=== PATIENT | male | born 1970 | race Caucasian/White ===

== ENCOUNTER 2022-07-30 12:48 | Inpatient (IN) | payer OTHER ==
[2022-07-30 14:34] VITALS: BMI 22.4
[2022-07-30] MEDS ORDERED: MAG HYDROX/AL HYDROX/SIMETH 30 ML UNIT-DOSE CUP PO PRN (16:34)
[2022-07-30] MEDS ORDERED: BISMUTH SUBSALICYLATE 524 MG/30 ML PO PRN (16:34)
[2022-07-30] MEDS ORDERED: DICYCLOMINE HCL 10 MG CAPSULE PO PRN (16:34)
[2022-07-30] MEDS ORDERED: ACETAMINOPHEN 325 MG TABLET (FP) PO PRN (16:34)
[2022-07-30] MEDS ORDERED: LOPERAMIDE HCL 2 MG CAPSULE PO PRN (16:34)
[2022-07-30] MEDS ORDERED: IBUPROFEN 400 MG TABLET (FP) PO PRN (16:34)
[2022-07-30] MEDS ORDERED: MAGNESIUM CITRATE 300 ML BOTTLE PO PRN (16:34)
[2022-07-30] MEDS ORDERED: BENZOCAINE/MENTHOL (CHLORASEPTIC ) LOZENGE MM PRN (16:34)
[2022-07-30] MEDS ORDERED: ONDANSETRON *ODT* 4 MG TABLET SL PRN (16:34)
[2022-07-30] MEDS ORDERED: hydrOXYzine PAMOATE 25 MG CAPSULE (FP) PO PRN (16:34)
[2022-07-30] MEDS ORDERED: NALOXONE HCL (KLOXXADO) 8 MG SPRAY NS PRN (16:34)
[2022-07-30] MEDS ORDERED: MAGNESIUM HYDROX 2400MG/30ML ORAL SUSPENSION 30 ML CUP PO PRN (16:34)
[2022-07-30] MEDS: PRENATAL VITAMINS W/ FOLIC ACID TABLET (FP) PO SCH (20:19)
[2022-07-30] MEDS: NICOTINE 7 MG/24 HOURS TOPICAL PATCH TD SCH (20:19)
[2022-07-30] MEDS: diazePAM 5 MG TABLET PO SCH ×2 (20:20→22:55)
[2022-07-30] MEDS: METHOCARBAMOL 500 MG TABLET PO PRN (22:54)
[2022-07-30] MEDS: MELATONIN 5 MG TABLETS PO SCH (22:55)
[2022-07-30] MEDS: THIAMINE HCL 100 MG TABLET (FP) PO SCH (22:55)
[2022-07-31] MEDS: diazePAM 5 MG TABLET PO SCH ×4 (06:24→22:30)
[2022-07-31] MEDS ORDERED: methaDONE HCL 10 MG TABLET PO ONE (09:16)
[2022-07-31] MEDS ORDERED: methaDONE 40 MG, methaDONE 20 MG PO ONE (09:22)
[2022-07-31] MEDS: METHOCARBAMOL 500 MG TABLET PO PRN (10:33)
[2022-07-31] MEDS: PRENATAL VITAMINS W/ FOLIC ACID TABLET (FP) PO SCH (10:33)
[2022-07-31] MEDS: IBUPROFEN 600 MG TABLET (FP) PO PRN (10:35)
[2022-07-31] MEDS: NICOTINE 7 MG/24 HOURS TOPICAL PATCH TD SCH (10:36)
[2022-07-31] MEDS: NICOTINE 10 MG CARTRIDGE (INHALER) IH PRN (10:46)
[2022-07-31 14:17] LABS: HEMATOCRIT 38.6 % (35.4-49); MCHC 33.6 g/dl (32.0-35.9); MEAN CELL VOLUME 95.2 fl (80-96); PLATELET COUNT 47 10^3/uL (134-434); RBC 4.05 M/mm3 (4.00-5.60); RDW 13.3 % (11.9-15.9)
[2022-07-31 15:30] LABS: ALBUMIN 2.4 g/dl (3.4-5.0); BLOOD UREA NITROGEN 12.9 mg/dL (7-18); CALCIUM 8.1 mg/dL (8.5-10.1)
[2022-07-31 15:33] LABS: CREATININE 0.5 mg/dL (0.55-1.3)
[2022-07-31 15:34] LABS: BILIRUBIN,TOTAL 0.9 mg/dL (0.2-1); TOT PROT 6.2 g/dl (6.4-8.2)
[2022-07-31] MEDS: MELATONIN 5 MG TABLETS PO SCH (22:30)
[2022-07-31] MEDS: THIAMINE HCL 100 MG TABLET (FP) PO SCH (22:30)
[2022-08-01] MEDS ORDERED: methaDONE HCL 10 MG TABLET PO SCH (06:00)
[2022-08-01] MEDS: diazePAM 5 MG TABLET PO SCH ×3 (06:23→21:49)
[2022-08-01] MEDS: methaDONE 40 MG, methaDONE 20 MG PO SCH (06:24)
[2022-08-01] MEDS: NICOTINE 10 MG CARTRIDGE (INHALER) IH PRN (10:56)
[2022-08-01] MEDS: PRENATAL VITAMINS W/ FOLIC ACID TABLET (FP) PO SCH (10:56)
[2022-08-01] MEDS: METHOCARBAMOL 500 MG TABLET PO PRN (10:56)
[2022-08-01] MEDS: IBUPROFEN 600 MG TABLET (FP) PO PRN (10:56)
[2022-08-01] MEDS: NICOTINE 7 MG/24 HOURS TOPICAL PATCH TD SCH (10:57)
[2022-08-01] MEDS: MELATONIN 5 MG TABLETS PO SCH (21:49)
[2022-08-01] MEDS: THIAMINE HCL 100 MG TABLET (FP) PO SCH (21:49)
[2022-08-02] MEDS: methaDONE 40 MG, methaDONE 20 MG PO SCH (06:27)
[2022-08-02] MEDS: diazePAM 5 MG TABLET PO SCH ×2 (06:28→18:27)
[2022-08-02] MEDS: NICOTINE 7 MG/24 HOURS TOPICAL PATCH TD SCH (11:24)
[2022-08-02] MEDS: METHOCARBAMOL 500 MG TABLET PO PRN (11:24)
[2022-08-02] MEDS: PRENATAL VITAMINS W/ FOLIC ACID TABLET (FP) PO SCH (11:24)
[2022-08-02] MEDS: ACETAMINOPHEN 325 MG TABLET (FP) PO PRN (11:25)
[2022-08-02] MEDS: NICOTINE 10 MG CARTRIDGE (INHALER) IH PRN (11:38)
[2022-08-03] MEDS: THIAMINE HCL 100 MG TABLET (FP) PO SCH (00:04)
[2022-08-03] MEDS: MELATONIN 5 MG TABLETS PO SCH (00:04)
[2022-08-03] MEDS: METHOCARBAMOL 500 MG TABLET PO PRN (00:05)
[2022-08-03] MEDS ORDERED: diazePAM 5 MG TABLET PO ONE (06:00)
[2022-08-03] MEDS: methaDONE 40 MG, methaDONE 20 MG PO SCH (06:17)
[2022-08-03] MEDS: PRENATAL VITAMINS W/ FOLIC ACID TABLET (FP) PO SCH (10:57)
[2022-08-03] MEDS: ACETAMINOPHEN 325 MG TABLET (FP) PO PRN (10:57)
[2022-08-03] MEDS: NICOTINE 7 MG/24 HOURS TOPICAL PATCH TD SCH (10:57)
[2022-08-03 12:50] VITALS: BP 98/54; PULSE 54; RESP 17; TEMP 97.6
== END 2022-08-03 13:38 | disposition home or self-care (01) | DRG 773 ==
LOC: YASAS 12:48 → Y6N 17:32
PROVIDERS: ADMIT Allergy & Immunology; ATTEND Surgery
PROC: HZ2ZZZZ Detoxification Services for Substance Abuse Treatment (ICD-10-PCS; principal; 2022-07-30)
DX: F10.20 Alcohol dependence, uncomplicated (principal); F13.230 Sedative, hypnotic or anxiolytic dependence with withdrawal, uncomplicated; F11.20 Opioid dependence, uncomplicated; F14.20 Cocaine dependence, uncomplicated; F12.20 Cannabis dependence, uncomplicated; F17.210 Nicotine dependence, cigarettes, uncomplicated; F39 Unspecified mood [affective] disorder; F19.282 Other psychoactive substance dependence with psychoactive substance-induced sleep disorder; F31.9 Bipolar disorder, unspecified; F41.9 Anxiety disorder, unspecified; F43.10 Post-traumatic stress disorder, unspecified; U07.1 COVID-19; L97.828 Non-pressure chronic ulcer of other part of left lower leg with other specified severity; Z28.310 Unvaccinated for COVID-19; Z28.9 Immunization not carried out for unspecified reason
CPT/HCPCS: 36415; 80053; 85027; 86780; C9803-CS; U0003; U0005